=== PATIENT | male | born 1950 | race Caucasian/White ===

== ENCOUNTER 2018-10-24 10:18 | Inpatient (IN) | payer MEDICARE ==
[2018-10-24 11:13] LABS: Albumin 3.8 g/dL (3.5-5.0); Calcium 9.2 mg/dL (8.4-10.2); Magnesium 1.8 mg/dL (1.6-2.3); Potassium 5.1 mmol/L (3.5-5.1); Total Bilirubin 0.9 mg/dL (0.2-1.3); Total Protein 6.8 g/dL (6.3-8.2)
[2018-10-24 11:18] LABS: Anisocytosis Slight; Basophils # (A) 0.1 k/uL (0-0.2); Basophils % (A) 1 %; Eosinophils # (A) 0.2 k/uL (0-0.7); Eosinophils % (A) 2 %; HCT 43.8 % (39.0-53.0); HGB 14.8 gm/dL (13.0-17.5); Lymphocytes # (A) 2.6 k/uL (1.0-4.8); Lymphocytes % (A) 20 %; MCHC 33.8 g/dL (31.0-37.0); MCV 88.9 fL (80.0-100.0); Monocytes # (A) 0.8 k/uL (0-1.0); Monocytes % (A) 6 %; Neutrophils # (A) 9.3 k/uL (1.3-7.7); Neutrophils % (A) 71 %; Platelet Count 179 k/uL (150-450); RBC 4.93 m/uL (4.30-5.90); RDW 17.7 % (11.5-15.5); WBC 13.2 k/uL (3.8-10.6)
[2018-10-24 11:23] LABS: Partial Thromboplastin Time 26.5 sec (22.0-30.0); Prothrombin Time 10.5 sec (9.0-12.0)
--- NOTE | 2018-10-24 11:28 | XR ---
EXAMINATION TYPE: XR chest 2V DATE OF EXAM: 10/24/2018 COMPARISON: Prior chest x-ray 04/13/2012 HISTORY: Chest pain TECHNIQUE: Frontal and lateral views of the chest are obtained. FINDINGS: There is no pneumothorax seen. The cardiac silhouette size is within normal limits. Apica l pleural thickening noted on the right. There are overlying cardiac leads. There is blunting of the left costophrenic angle, suspect a prominent epicardial fat pad. Pleural thickening is noted along th e lateral chest wall similar to prior exam. The osseous structures are intact. IMPRESSION: Difficult to exclude a lingular pneumonia, correlate. Follow-up suggested.
--- NOTE | 2018-10-24 13:05 | ED ---
Recheck HPI - General Chief Complaint: Recheck/Abnormal Lab/Rx Stated Complaint: chest pain, abn labs Time Seen by Provider: 10/24/18 10:32 Source: patient, RN notes reviewed Mode of arrival: wheelchair Limitations: no limitations - History of Present Illness Initial Comments: This is a 68-year-old male who is been a smoker since age 11 smokes about 3 p acks a day who is having intermittent episodes of chest pain this past week he was seen in his doctor's office lab work had been drawn he had a normal- appearing EKG labs however which were found this morning demonstrate elevated troponin of 4.1. Upon arrival here the patient states he is having no chest pain at this time he states he was having more chest pain last week over the weekend he has several episodes but now denies any pain no new shortness of breath though he does admit that he likely has COPD and emphysema. He denies fevers chills nausea vomiting sweats or other symptoms MD Complaint: abnormal lab - Related Data Home Medications Medication Instructions Recorded Confirmed Aspirin EC [Ecotrin] 325 mg PO BID 10/24/18 10/24/18 Atenolol [Tenormin] 50 mg PO HS 10/24/18 10/24/18 Atenolol [Tenormin] 100 mg PO DAILY 10/24/18 10/24/18 Cyclobenzaprine [Flexeril] 10 mg PO TID 10/24/18 10/24/18 HYDROcodone/APAP 5-325MG [[place] 1 tab PO Q6H PRN 10/24/18 10/24/18 5-325] Isosorbide Mononitrate ER [Imdur] 60 mg PO DAILY 10/24/18 10/24/18 Lisinopril [Zestril] 20 mg PO DAILY 10/24/18 10/24/18 Niacin 500 mg PO BID 10/24/18 10/24/18 Omeprazole [PriLOSEC] 20 mg PO DAILY 10/24/18 10/24/18 Simvastatin 40 mg PO HS 10/24/18 10/24/18 Umeclidinium Brm/Vilanterol Tr 1 puff INHALATION RT-DAILY 10/24/18 10/24/18 [Anoro Ellipta 62.5-25 Mcg INH] metFORMIN HCL [Glucophage] 500 mg PO AC-BID 10/24/18 10/24/18 Allergies Allergy/AdvReac Type Severity Reaction Status Date / Time codeine AdvReac PASSES OUT Verified 10/24/18 11:19 Review of Systems ROS Statement: Those systems with pertinent positive or pertinent negative responses have been documented in the HPI. ROS Other: All systems not noted in ROS Statement are negative. Past Medical History Past Medical History: Coronary Artery Disease (CAD), Chest Pain / Angina, COPD, Diabetes Mellitus History of Any Multi-Drug Resistant Organisms: None Reported Past Surgical History: Back Surgery, Heart Catheterization With Stent, Orthopedic Surgery Additional Past Surgical History / Comment(s): leg ankle Past Psychological History: No Psychological Hx Reported Smoking Status: Current every day smoker Past Alcohol Use History: None Reported Past Drug Use History: None Reported General Exam - General Exam Comments Initial Comments: This a well-developed well-nourished awake alert oriented 3 male Limitations: no limitations General appearance: alert, in no apparent distress Head exam: Present: atraumatic, normocephalic, normal inspection Eye exam: Present: normal appearance, PERRL, EOMI. Absent: scleral icterus, conjunctival injection, periorbital swelling ENT exam: Present: normal exam, mucous membranes moist Neck exam: Present: normal inspection. Absent: tenderness, meningismus, lymphadenopathy Respiratory exam: Present: normal lung sounds bilaterally. Absent: respiratory distress, wheezes, rales, rhonchi, stridor Cardiovascular Exam: Present: regular rate, normal rhythm, normal heart sounds. Absent: systolic murmur, diastolic murmur, rubs, gallop, clicks GI/Abdominal exam: Present: soft, normal bowel sounds. Absent: distended, tenderness, guarding, rebound, rigid Extremities exam: Present: normal inspection, full ROM, normal capillary refill. Absent: tenderness, pedal edema, joint swelling, calf tenderness Back exam: Present: normal inspection Neurological exam: Present: alert, oriented X3, CN II-XII intact Psychiatric exam: Present: normal affect, normal mood Skin exam: Present: warm, dry, intact, normal color. Absent: rash Course Vital Signs 10/24/18 10:25 Temperature 98.4 F Pulse Rate 65 Respiratory 20 Rate Blood Pressure 107/57 O2 Sat by Pulse 97 Oximetry - Reevaluation(s) Reevaluation #1: 10/24/18 13:06 Patient demonstrates no further chest pain. I did discuss the case both with Dr. Beard and with Dr. Rivera who did come the emergency department to see the patient Medical Decision Making - Medical Decision Making Dr. isaac I did come the emergency department and will take the patient the [facility]. - Lab Data Result diagrams: 10/24/18 10:40 10/24/18 10:40 Lab Results 10/24/18 10/24/18 10/24/18 Range/Units 10:40 10:40 10:40 WBC 13.2 H (3.8-10.6) k/uL RBC 4.93 (4.30-5.90) m/uL Hgb 14.8 (13.0-17.5) gm/dL Hct 43.8 (39.0-53.0) % MCV 88.9 (80.0-100.0) fL MCH 30.0 (25.0-35.0) pg MCHC 33.8 (31.0-37.0) g/dL RDW 17.7 H (11.5-15.5) % Plt Count 179 (150-450) k/uL Neutrophils % 71 % Lymphocytes % 20 % Monocytes % 6 % Eosinophils % 2 % Basophils % 1 % Neutrophils # 9.3 H (1.3-7.7) k/uL Lymphocytes # 2.6 (1.0-4.8) k/uL Monocytes # 0.8 (0-1.0) k/uL Eosinophils # 0.2 (0-0.7) k/uL Basophils # 0.1 (0-0.2) k/uL Anisocytosis Slight PT 10.5 (9.0-12.0) sec INR 1.0 (<1.2) APTT 26.5 (22.0-30.0) sec Sodium 134 L (137-145) mmol/L Potassium 5.1 (3.5-5.1) mmol/L Chloride 101 (98-107) mmol/L Carbon Dioxide 24 (22-30) mmol/L Anion Gap 9 mmol/L BUN 16 (9-20) mg/dL Creatinine 1.08 (0.66-1.25) mg/dL Est GFR (CKD-EPI)AfAm 81 (>60 ml/min/1.73 sqM) Est GFR (CKD-EPI)NonAf 70 (>60 ml/min/1.73 sqM) Glucose 204 H (74-99) mg/dL Calcium 9.2 (8.4-10.2) mg/dL Magnesium 1.8 (1.6-2.3) mg/dL Total Bilirubin 0.9 (0.2-1.3) mg/dL AST 48 (17-59) U/L ALT 31 (21-72) U/L Alkaline Phosphatase 86 (38-126) U/L Creatine Kinase 171 H (55-170) U/L Troponin I (0.000-0.034) ng/mL Total Protein 6.8 (6.3-8.2) g/dL Albumin 3.8 (3.5-5.0) g/dL 10/24/18 Range/Units 10:40 WBC (3.8-10.6) k/uL RBC (4.30-5.90) m/uL Hgb (13.0-17.5) gm/dL Hct (39.0-53.0) % MCV (80.0-100.0) fL MCH (25.0-35.0) pg MCHC (31.0-37.0) g/dL RDW (11.5-15.5) % Plt Count (150-450) k/uL Neutrophils % % Lymphocytes % % Monocytes % % Eosinophils % % Basophils % % Neutrophils # (1.3-7.7) k/uL Lymphocytes # (1.0-4.8) k/uL Monocytes # (0-1.0) k/uL Eosinophils # (0-0.7) k/uL Basophils # (0-0.2) k/uL Anisocytosis PT (9.0-12.0) sec INR (<1.2) APTT (22.0-30.0) sec Sodium (137-145) mmol/L Potassium (3.5-5.1) mmol/L Chloride (98-107) mmol/L Carbon Dioxide (22-30) mmol/L Anion Gap mmol/L BUN (9-20) mg/dL Creatinine (0.66-1.25) mg/dL Est GFR (CKD-EPI)AfAm (>60 ml/min/1.73 sqM) Est GFR (CKD-EPI)NonAf (>60 ml/min/1.73 sqM) Glucose (74-99) mg/dL Calcium (8.4-10.2) mg/dL Magnesium (1.6-2.3) mg/dL Total Bilirubin (0.2-1.3) mg/dL AST (17-59) U/L ALT (21-72) U/L Alkaline Phosphatase (38-126) U/L Creatine Kinase (55-170) U/L Troponin I 3.680 H* (0.000-0.034) ng/mL Total Protein (6.3-8.2) g/dL Albumin (3.5-5.0) g/dL - EKG Data -: EKG Interpreted by In EKG shows normal: sinus rhythm (#760. Interval 150 QRS duration 80 QT since QTC 386/[address]-T wave changes.) - Radiology Data Radiology results: report reviewed, image reviewed Critical Care Time Critical Care Time: Yes Critical Care Time: 31 minutes of critical care time which includes initial presentation with history physical labs x-rays multiple reevaluation the patient discussed with the admitting physician discussed with Dr. Rivera discussion with the [facility] personnel some admission orders and documentation of the above Disposition Clinical Impression: Non-STEMI (non-ST elevated myocardial infarction), COPD (chronic obstructive pulmonary disease), Smoker Disposition: ADMITTED IP TO THIS HOSP Condition: Critical Referrals: Good Beard MD [Primary Care Provider] - 1-2 days
[2018-10-24] MEDS ORDERED: ATORVASTATIN 80 MG TAB PO STA (13:08)
[2018-10-24] MEDS ORDERED: ALPRAZolam 0.25 MG TAB PO PRN (13:08)
[2018-10-24] MEDS ORDERED: ALPRAZolam 0.5 MG TAB PO PRN (13:08)
[2018-10-24] MEDS ORDERED: ASPIRIN 325 MG TAB PO STA (13:08)
[2018-10-24] MEDS ORDERED: NITROGLYCERIN SL TABS 0.4 MG TAB SUBLINGUAL PRN ×3 (13:08→14:35)
[2018-10-24] MEDS ORDERED: ASPIRIN 325 MG TAB ONE (13:13)
[2018-10-24] MEDS ORDERED: LIDOCAINE 1% INJ 10MG/ML (20 ML MDV) ONE (13:21)
[2018-10-24] MEDS ORDERED: VERAPAMIL 2.5 MG/ML 2 ML AMP ONE (13:21)
[2018-10-24] MEDS ORDERED: fentaNYL (PF) 50 MCG/ML 2 ML AMP ONE (13:22)
[2018-10-24] MEDS ORDERED: ASPIRIN 325 MG TAB PO ONE (13:29)
[2018-10-24] MEDS ORDERED: fentaNYL (PF) 50 MCG/ML 2 ML AMP IV ONE (13:29)
[2018-10-24] MEDS ORDERED: SODIUM CHLORIDE 0.9% 1,000 ML IV ONE (13:31)
[2018-10-24] MEDS ORDERED: MIDAZOLAM PF (FBP) 2 MG/2 ML VIAL IV ONE (13:34)
[2018-10-24] MEDS ORDERED: LIDOCAINE 1% INJ 10MG/ML (20 ML MDV) SQ ONE (13:35)
[2018-10-24] MEDS ORDERED: VERAPAMIL SYRINGE (5 MG/10 ML) INTRAARTER ONE (13:37)
[2018-10-24] MEDS ORDERED: BIVALIRUDIN BOLUS 250 MG/50 ML IV ONE (13:45)
[2018-10-24] MEDS ORDERED: BIVALIRUDIN 250 MG in SODIUM CHLORIDE 0.9% 34 ML IV ONE (13:45)
[2018-10-24] MEDS ORDERED: PRASUGREL 10 MG TAB ONE (13:45)
[2018-10-24] MEDS ORDERED: PRASUGREL 10 MG TAB PO ONE (13:48)
[2018-10-24] MEDS ORDERED: IOPAMIDOL-370 100ML BTL INJ ONE ×2 (13:51→14:10)
[2018-10-24] MEDS: NITROGLYCERIN 1000MCG/10ML SYRINGE INTRACORON ONE ×2 (13:58→14:09)
[2018-10-24] MEDS ORDERED: ATROPINE SULFATE 0.1 MG/ML 10ML SYRINGE IV PRN (14:35)
[2018-10-24] MEDS ORDERED: ZOLPIDEM 5 MG TAB PO PRN (14:35)
[2018-10-24] MEDS ORDERED: RX INFO: IV CONTRAST WAS GIVEN 1 EACH MISC MISCELLANE PRN (14:35)
[2018-10-24] MEDS ORDERED: MAG HYDROX/AL HYDROX/SIMETH 30 ML CUP PO PRN (14:35)
[2018-10-24] MEDS ORDERED: SODIUM CHLORIDE 0.9% 1,000 ML IV SCH (14:45)
[2018-10-24] MEDS: NICOTINE 21MG/24HR PATCH TRANSDERM SCH (15:22)
[2018-10-24] MEDS: CYCLOBENZAPRINE 10 MG TAB PO SCH ×2 (15:24→21:01)
--- NOTE | 2018-10-24 17:11 | CONS ---
CONSULTATION Mr. Lugo is a 68-year-old male with a known history of hypertension, hyperlipidemia, diabetes mellitus, history of coronary artery disease, status post stenting of the RCA with 2 stents in [place] 15 years ago, at which time he was told that he had mild disease in the other arteries. He has done reasonably well. For the last week he has been complaining of chest discomfort. On Wednesday he was seen by Dr. Beard and lab data were obtained that revealed a troponin of 4. He was called in today to come into the emergency room. He had some pain yesterday at rest. Last week the discomfort was exertional, associated with dyspnea. He has dyspnea on exertion. He smokes about 3 packs a day. He has history of hypertension, hyperlipidemia, diabetes. He denies any peripheral edema. No PND. No orthopnea. He denies any arrhythmia or syncope. MEDICATIONS: His medications at home include: 1. Metformin 500 mg twice a day. 2. Ellipta. 3. Simvastatin 40 mg daily. 4. Prilosec. 5. Niacin. 6. Zestril 20 mg daily. 7. Isosorbide mononitrate 60 mg daily. 8. Flexeril 10 mg 3 times a day. 9. Tenormin 150 mg daily. 10.Aspirin once a day. REVIEW OF SYSTEMS: RESPIRATORY SYSTEM: He had dyspnea on exertion, history of chronic obstructive lung disease and chronic tobacco use. GI SYSTEM: No recent GI bleeding. No peptic ulcer disease. SYSTEM: No dysuria or hematuria. NERVOUS SYSTEM: No history of stroke or seizure. PHYSICAL EXAMINATION: He is a 68-year-old male, alert, oriented, in no apparent distress. Obese. Blood pressure 107/57 with a heart rate in the 60s. HEAD: Normocephalic. EYES: Sclerae anicteric. NECK: Good carotid upstroke. No bruit. LUNGS: Decreased air exchange. No wheezes. HEART: Regular rate, rhythm. S1, S2. No S3. Systolic murmur at the base. No diastolic murmur. No rub. ABDOMEN: Soft, obese, nontender. Positive bowel sounds. No organomegaly. EXTREMITIES: No edema. Intact distal pulses. LAB DATA: Troponin 3.68, blood sugar of 204, potassium 5.1. BUN and creatinine of 16 and 1.08. Hemoglobin 14.8, white blood cells 13.2. EKG revealed a sinus mechanism, normal axis and intervals with no acute ST-segment changes. Chest x-ray raised the question of lingular pneumonia. IMPRESSION: 1. Lph-FI-mwnndwo-elevation myocardial infarction. Patient had chest discomfort throughout last week. His troponin on Wednesday, according to the emergency room staff, was 4, although it is unclear if it was on the rise or coming down. The patient had recurrent pain yesterday at rest. 2. History of coronary artery disease, status post stenting done 15 years ago in [place]. 3. History of hypertension. 4. Hyperlipidemia. 5. Diabetes mellitus. 6. Chronic tobacco use with chronic obstructive lung disease. RECOMMENDATIONS: In view of his presentation and risk, I have recommended proceeding with coronary angiography to assess his status and guide his treatment. The rationale behind the procedure was discussed with the patient, who is in full understanding and agreement. Thank you for this consult. Will follow with you. MMCORNELL / IJN: [id number] /
--- NOTE | 2018-10-24 18:42 | CC ---
CARDIAC CATHETERIZATION REPORT Mr. Lugo is a 68-year-old male with known history of coronary artery disease, status post stenting to the right coronary artery done in [place] 15 years ago, history of hypertension, hyperlipidemia, diabetes and chronic tobacco use. He presented to the emergency room after complaining of chest discomfort for the last week, exertional pattern. He had lab data drawn by Dr. Beard on Wednesday and his troponin came back elevated at 4. He was directed to come to the emergency room today. He had some chest discomfort last night at rest. In view of that and in view of his presentation, recommendations were made regarding cardiac catheterization. The procedure, its risks and complication were discussed with the patient, who was in full understanding and agreement. PROCEDURE: Patient was brought to the clinical laboratory assistant in a fasting, semi-sedated state after receiving fentanyl and Benadryl and achieving a moderate conscious sedated state. Using Xylocaine anesthesia and Seldinger technique, a 6-Cuban sheath was introduced in the right radial artery. Selective right and left coronary angiography was performed using 5-Cuban 3-1/2 bend right and left Makenzie catheters. Multiple views were taken of the arteries, including hemiaxial views. Following that, angioplasty and stenting were performed. Following that, 5-Cuban tight pigtail catheter was introduced into the left ventricle and pressures were calculated. Following that, catheter and sheath were removed. Hemostasis was obtained with deployment of a TR band. There was no immediate complication. Patient was returned to his room in stable condition. Of note, the patient received Angiomax during the intervention as well as oral loading dose of Effient and intra-arterial verapamil. FINDINGS: FLUOROSCOPY: There was calcification involving the coronary arteries. LEFT MAIN: This is a large-sized vessel bifurcating into left circumflex and left anterior descending artery. Left main coronary artery has no evidence of high-grade stenosis. LEFT ANTERIOR DESCENDING ARTERY: This is a large-sized vessel reaching toward the apex with a wrap around the apex segment giving rise to 3 diagonal branches of small to moderate caliber. The left anterior descending artery after the takeoff of the first septal mutuel cashier has a 60% to 70% plaque. The rest of the vessel has no high-grade stenosis. LEFT CIRCUMFLEX: This is a nondominant vessel giving rise to 2 obtuse marginal branches. The left circumflex has mild to moderate disease of 40% without any evidence of high-grade stenosis. RIGHT CORONARY ARTERY: This is a large dominant vessel bifurcating distally into PDA and posterolateral segment and branches. The mid segment is stented. There is subtotal occlusion in the mid right coronary artery with slow antegrade flow in the PDA and PLV. There is also a plaque of 60%, proximal right coronary artery. LEFT VENTRICULOGRAM: Left ventriculogram was not performed. HEMODYNAMICS: There was no gradient across the aortic valve. The left ventricular end-diastolic pressure was 24-26 mmHg. CONCLUSION: 1. Subtotally occluded right coronary artery in the mid segment with slow flow distally. 2. Moderate to significant disease in the mid LAD. 3. Mild disease in the left circumflex. RECOMMENDATIONS: In view of findings and anatomy, I have recommended proceeding with angioplasty and stenting of the right coronary artery. The procedure, its risks and complications were discussed with the patient, who is in full understanding and agreement. MMBROOKLYN / BILLYN: [id number] /
--- NOTE | 2018-10-24 18:54 | PTCA ---
PERCUTANEOUSTRANS CORORONARY ANGIOGRAPHY Mr. Lugo is a 68-year-old male with a known history of coronary artery disease, status post stenting of the right coronary artery 15 years ago, who presented with non- STEMI. He underwent cardiac catheterization was found to have a totally occluded mid right coronary artery. In view of that, recommendation was made regarding angioplasty and stenting. The procedure, its risks and complications were discussed with the patient, who was in full understanding and agreement. PROCEDURE: A 6-Telugu FR4 guiding catheter was introduced in the system. After cannulating the right coronary ostium, a 0.014 balanced medium-weight J-wire was advanced across the lesion and positioned distally. Then a 2.5 x 12 mm Trek balloon was advanced and one inflation at 10 atmospheres was done. Following that the balloon was removed and a 2.75 x 23 mm Xience Leonarda stent was deployed and post dilated at 16 atmospheres. Following that, the balloon was removed and a 3.0 x 38 mm Xience Leonarda stent was deployed proximal to the first one and post dilated to 16 atmospheres; and using the same balloon and inflation overlap segment, 18 atmospheres was done. Following that, the balloon was removed and a 3.25 mm x 15 mm NC Trek balloon was advanced and multiple inflations at maximum 14 atmospheres were done. After the last inflation, after appropriate wait, the balloon and the guidewire were withdrawn back into the guiding catheter. Images were obtained and repeated. Those images revealed stable successful stenting. At that point, the guiding catheter, the balloon and the guidewire were removed. Left ventricular end-diastolic pressure was calculated. Following that, catheter and sheath were removed. Hemostasis was obtained with deployment of a TR band. There was no immediate complication. Patient was returned to his room in stable condition. Of note, the patient had chest discomfort and EKG changes with the inflations. He received Angiomax per protocol as well as oral loading dose of Effient. RESULTS: Successful stenting of a long segment of the right coronary artery with reduction of stenosis in mid segment from 99% to 0%. RECOMMENDATIONS: Patient will be continued on aspirin, Effient, beta blockers, ANATOLY inhibitor and statin. The importance of dual antiplatelet treatment was discussed with the patient as well as the importance of smoking cessation. Those findings and recommendation were discussed with him, and he is in full understanding and agreement. Duration of procedure was 47 minutes. MMODL / IJN: [id number] /
[2018-10-24 20:16] LABS: Glucose,Whole Blood 202 mg/dL (75-99)
[2018-10-25 06:34] LABS: Glucose,Whole Blood 143 mg/dL (75-99)
[2018-10-25] MEDS: PANTOPRAZOLE 40 MG TABLET PO SCH (06:44)
[2018-10-25 06:50] LABS: Calcium 8.8 mg/dL (8.4-10.2); Potassium 4.6 mmol/L (3.5-5.1)
[2018-10-25] MEDS: ATENOLOL 50 MG TAB PO SCH (08:15)
[2018-10-25] MEDS: ASPIRIN 81 MG PO SCH (08:15)
[2018-10-25] MEDS: PRASUGREL 10 MG TAB PO SCH (08:15)
[2018-10-25] MEDS: NICOTINE 21MG/24HR PATCH TRANSDERM SCH (08:15)
[2018-10-25] MEDS: LISINOPRIL 20 MG TAB PO SCH (08:15)
[2018-10-25] MEDS: CYCLOBENZAPRINE 10 MG TAB PO SCH ×3 (08:15→19:49)
--- NOTE | 2018-10-25 08:38 | P.HPIM ---
History of Present Illness H&P Date: 10/25/18 Chief Complaint: The patient is here essentially for abnormal troponin This is a history of physical on [age]-year-old white male with history of tobacco use and previous coronary stent placement about 15 years ago in [place]. The patient came in after a week long history of intermittent substernal chest pressure. The patient saw me in the office about 4 days ago and had EKG done which was normal. Troponin and CK-MB were elevated and the patient was sent for appropriate hospitalization. Coronary stent was placed and he is now seen postoperatively. The patient states minimal chest pressure now. No significant nausea, vomiting or diarrhea Review of Systems Constitutional: Denies chills, Denies fever Eyes: denies blurred vision, denies pain Ears, nose, mouth and throat: Denies headache, Denies sore throat Cardiovascular: Reports chest pain Respiratory: Denies cough Gastrointestinal: Denies abdominal pain, Denies diarrhea, Denies nausea, Denies vomiting Musculoskeletal: Denies myalgias Integumentary: Denies pruritus, Denies rash Neurological: Denies numbness, Denies weakness Past Medical History Past Medical History: Coronary Artery Disease (CAD), Chest Pain / Angina, COPD, Diabetes Mellitus History of Any Multi-Drug Resistant Organisms: None Reported Past Surgical History: Back Surgery, Heart Catheterization With Stent, Ortho pedic Surgery Additional Past Surgical History / Comment(s): leg ankle Date of Last Stent Placement:: 10/24/18 Past Psychological History: No Psychological Hx Reported Smoking Status: Current every day smoker Past Alcohol Use History: None Reported Past Drug Use History: None Reported Medications and Allergies Home Medications Medication Instructions Recorded Confirmed Type Aspirin EC [Ecotrin] 325 mg PO BID 10/24/18 10/24/18 History Atenolol [Tenormin] 50 mg PO HS 10/24/18 10/24/18 History Atenolol [Tenormin] 100 mg PO DAILY 10/24/18 10/24/18 History Cyclobenzaprine [Flexeril] 10 mg PO TID 10/24/18 10/24/18 History HYDROcodone/APAP 5-325MG [[place] 1 tab PO Q6H PRN 10/24/18 10/24/18 History 5-325] Isosorbide Mononitrate ER [Imdur] 60 mg PO DAILY 10/24/18 10/24/18 History Lisinopril [Zestril] 20 mg PO DAILY 10/24/18 10/24/18 History Niacin 500 mg PO BID 10/24/18 10/24/18 History Omeprazole [PriLOSEC] 20 mg PO DAILY 10/24/18 10/24/18 History Simvastatin 40 mg PO HS 10/24/18 10/24/18 History Umeclidinium Brm/Vilanterol Tr 1 puff INHALATION RT-DAILY 10/24/18 10/24/18 History [Anoro Ellipta 62.5-25 Mcg INH] metFORMIN HCL [Glucophage] 500 mg PO AC-BID 10/24/18 10/24/18 History Allergies Allergy/AdvReac Type Severity Reaction Status Date / Time codeine AdvReac PASSES OUT Verified 10/24/18 11:19 Physical Exam Vitals: Vital Signs Temp Pulse Pulse Pulse Resp BP BP 10/25/18 08:00 98 F 70 16 106/54 10/25/18 04:00 98.4 F 74 16 117/74 10/25/18 00:00 72 16 10/24/18 23:58 98.2 F 72 16 126/71 10/24/18 20:00 98.4 F 71 71 18 118/68 10/24/18 18:20 63 102/62 10/24/18 17:20 69 102/61 10/24/18 16:25 65 102/57 10/24/18 15:55 85 106/58 10/24/18 15:25 70 114/63 10/24/18 15:10 63 107/66 10/24/18 14:55 65 20 113/65 10/24/18 14:40 97.9 F 70 20 131/70 10/24/18 13:00 58 L 18 108/59 10/24/18 12:00 59 L 16 95/51 10/24/18 11:00 119/68 10/24/18 10:25 98.4 F 65 20 107/57 Pulse Ox 10/25/18 08:00 95 10/25/18 04:00 96 10/25/18 00:00 10/24/18 23:58 96 10/24/18 20:00 96 10/24/18 18:20 96 10/24/18 17:20 95 10/24/18 16:25 96 10/24/18 15:55 95 10/24/18 15:25 95 10/24/18 15:10 95 10/24/18 14:55 93 L 10/24/18 14:40 96 10/24/18 13:00 97 10/24/18 12:00 93 L 10/24/18 11:00 95 10/24/18 10:25 97 Intake and Output 10/24/18 10/25/18 10/25/18 22:59 06:59 14:59 Intake Total 1420 Balance 1420 Intake: Intake, IV Titration 1000 Amount Sodium Chloride 0.9% 1, 1000 000 ml @ 100 mls/hr IV . Q10H MARY KATE Rx#:[id number] Oral 420 Other: # Voids 1 1 Weight 98.2 kg - Constitutional General appearance: obese - EENT Eyes: EOMI - Neck Neck: no lymphadenopathy - Respiratory Respiratory: bilateral: CTA - Cardiovascular Rhythm: regular Heart sounds: normal: S1, S2 Abnormal Heart Sounds: no S3 Gallop - Gastrointestinal General gastrointestinal: soft, no tenderness - Integumentary Integumentary: no cellulitis - Neurologic Neurologic: CNII-XII intact, focal deficits Results CBC & Chem 7: 10/24/18 10:40 10/25/18 06:06 Labs: Abnormal Lab Results - Last 24 Hours (Table) 10/24/18 10/24/18 10/24/18 Range/Units 10:40 10:40 10:40 WBC 13.2 H (3.8-10.6) k/uL RDW 17.7 H (11.5-15.5) % Neutrophils # 9.3 H (1.3-7.7) k/uL Sodium 134 L (137-145) mmol/L Glucose 204 H (74-99) mg/dL POC Glucose (mg/dL) (75-99) mg/dL Creatine Kinase 171 H (55-170) U/L Troponin I 3.680 H* (0.000-0.034) ng/mL Triglycerides (<150) mg/dL HDL Cholesterol (40-60) mg/dL 10/24/18 10/24/18 10/24/18 Range/Units 16:53 20:15 22:27 WBC (3.8-10.6) k/uL RDW (11.5-15.5) % Neutrophils # (1.3-7.7) k/uL Sodium (137-145) mmol/L Glucose (74-99) mg/dL POC Glucose (mg/dL) 202 H (75-99) mg/dL Creatine Kinase (55-170) U/L Troponin I 7.540 H* 11.000 H* (0.000-0.034) ng/mL Triglycerides (<150) mg/dL HDL Cholesterol (40-60) mg/dL 10/25/18 10/25/18 Range/Units 06:06 06:31 WBC (3.8-10.6) k/uL RDW (11.5-15.5) % Neutrophils # (1.3-7.7) k/uL Sodium 134 L (137-145) mmol/L Glucose 140 H (74-99) mg/dL POC Glucose (mg/dL) 143 H (75-99) mg/dL Creatine Kinase (55-170) U/L Troponin I (0.000-0.034) ng/mL Triglycerides 231 H (<150) mg/dL HDL Cholesterol 22 L (40-60) mg/dL Thrombosis Risk Factor Assmnt - Choose All That Apply Each Factor Represents 1 point: Abnormal pulmonary function (COPD) Each Risk Factor Represents 2 Points: Age 61-74 years Thrombosis Risk Factor Assessment Total Risk Factor Score: 3 Thrombosis Risk Factor Assessment Level: Moderate Risk Assessment and Plan (1) Stented coronary artery Current Visit: Yes Status: Acute Code(s): Z95.5 - PRESENCE OF CORONARY ANGIOPLASTY IMPLANT AND GRAFT SNOMED Code(s): 636861280 (2) COPD (chronic obstructive pulmonary disease) Current Visit: Yes Status: Acute Code(s): J44.9 - CHRONIC OBSTRUCTIVE PULMONARY DISEASE, UNSPECIFIED SNOMED Code(s): 38520623 (3) Non-STEMI (non-ST elevated myocardial infarction) Current Visit: Yes Status: Acute Code(s): I21.4 - NON-ST ELEVATION (NSTEMI) MYOCARDIAL INFARCTION SNOMED Code(s): 75534496 Plan: Continue appropriate postoperative follow-up from multiple stent placement. Echocardiogram is being done today. Reconcile home medications as necessary. Anticipate discharge in next 24 hours. See orders otherwise. The patient is otherwise a full code. Time with Patient: Greater than 30
[2018-10-25] MEDS ORDERED: ASPIRIN 325 MG TAB PO SCH (09:00)
--- NOTE | 2018-10-25 09:02 | PN ---
PROGRESS NOTE Mr. Lugo is a 68-year-old male who has a history of coronary artery disease, history of chronic tobacco use, hypertension, hyperlipidemia, and diabetes who presented with non STEMI, underwent cardiac catheterization, was found to have a subtotally occluded right coronary artery, underwent stenting of that vessel. He is doing well this morning, denying any symptoms of chest pain. His breathing has been stable. He denies any dizziness or palpitation. He continues to be on aspirin once a day, atenolol 100 mg daily, Lipitor 80 mg daily, lisinopril 20 mg daily and Effient 10 mg daily. PHYSICAL EXAMINATION: Blood pressure 106/50 with the heart rate in 70s. LUNGS: Clear. HEART: Regular rate and rhythm. S1, S2. No S3. No rub with a systolic murmur, ejection type 2/6 heard at the base, no diastolic murmur. ABDOMEN: Soft, nontender. EXTREMITIES: No edema. Right radial pulse intact. LAB DATA: Lab data revealed troponin of 11, BUN creatinine of 18 and 1.03, sodium 134. IMPRESSION: 1. Status post stenting of the right coronary artery in a setting of [id number] myocardial infarction. 2. Moderate significant disease in the mid LAD. 3. Hypertension. 4. Hyperlipidemia. 5. Diabetes mellitus. RECOMMENDATION: From the cardiac standpoint, I will continue present therapy. We will review the results of his echocardiogram. Increase his level of activity and I will review his images to see if the LAD requires intervention. Depending on his progress, further recommendation will be made. MMODL / IJN: [id number] /
--- NOTE | 2018-10-25 11:01 | ECHOF ---
Referral Reason:pr MEASUREMENTS -------- HEIGHT: 170.2 cm WEIGHT: 98.0 kg BP: 117/74 RVIDd: 2.7 cm (< 3.3) IVSd: 1.5 cm (0.6 - 1.1) LVIDd: 4.7 cm (3.9 - 5.3) LVPWd: 1.0 cm (0.6 - 1.1) IVSs: 1.6 cm LVIDs: 3.2 cm LVPWs: 1.4 cm LA Diam: 3.2 cm (2.7 - 3.8) Ao Diam: 2.9 cm (2.0 - 3.7) AV Cusp: 0.9 cm (1.5 - 2.6) LA Diam: 4.1 cm (2.7 - 3.8) MV EXCURSION: 19.913 mm (> 18.000) MV EF SLOPE: 105 mm/s (70 - 150) EPSS: 0.4 cm MV E Rick: 0.64 m/s MV DecT: 171 ms MV A Rick: 0.59 m/s MV E/A Ratio: 1.08 AV maxP.03 mmHg AV meanP.54 mmHg RAP: 5.00 mmHg RVSP: 20.00 mmHg FINDINGS -------- Sinus rhythm. This was a techncally difficult study with suboptimal views, , Lumason utilized for enhancement of im ages. The left ventricular size is normal. There is borderline concentric left ventricular hypertrophy. Overall left ventricular systolic function is mildly impaired with, an EF between 45 - 50 %. Infer ior Hypokinesis The right ventricle is normal in size. The left atrial size is normal. The right atrial size is normal. 5.0mg OF Lumason UTLIZED: 2 OR MORE WALL SEGMENTS NOT VISUALIZED. The aortic valve was not well visualized. There is moderate aortic stenosis present. Peak/mean gr adient across the Aortic Valve is 29.03mmHg / 17.54mmHg. Mild mitral regurgitation is present. Mild tricuspid regurgitation present. There is no evidence of pulmonary hypertension. The right v entricular systolic pressure, as measured by Doppler, is 20.00mmHg. The pulmonic valve was not well visualized. The aortic root size is normal. Echo free space represents a pericardial fat pad. CONCLUSIONS -------- 1. Sinus rhythm. 2. This was a techncally difficult study with suboptimal views, , Lumason utilized for enhancement of images. 3. The left ventricular size is normal. 4. There is borderline concentric left ventricular hypertrophy. 5. Overall left ventricular systolic function is mildly impaired with, an EF between 45 - 50 %. 6. Inferior Hypokinesis 7. The right ventricle is normal in size. 8. The left atrial size is normal. 9. The right atrial size is normal. 10. 5.0mg OF Lumason UTLIZED: 2 OR MORE WALL SEGMENTS NOT VISUALIZED. 11. The aortic valve was not well visualized. 12. There is moderate aortic stenosis present. 13. Peak/mean gradient across the Aortic Valve is 29.03mmHg / 17.54mmHg. 14. Mild mitral regurgitation is present. 15. Mild tricuspid regurgitation present. 16. There is no evidence of pulmonary hypertension. 17. The right ventricular systolic pressure, as measured by Doppler, is 20.00mmHg. 18. The pulmonic valve was not well visualized. 19. The aortic root size is normal. 20. Echo free space represents a pericardial fat pad. METER SETTER: Jina Quiles RDCS
[2018-10-25 12:38] LABS: Glucose,Whole Blood 151 mg/dL (75-99)
[2018-10-25 14:14] VITALS: BMI 33.9
[2018-10-25 17:21] LABS: Glucose,Whole Blood 223 mg/dL (75-99)
[2018-10-25 20:55] LABS: Glucose,Whole Blood 149 mg/dL (75-99)
[2018-10-25] MEDS ORDERED: ATORVASTATIN 80 MG TAB PO SCH (21:00)
[2018-10-26 03:51] VITALS: RESP 18
[2018-10-26 06:15] LABS: Glucose,Whole Blood 159 mg/dL (75-99)
[2018-10-26] MEDS: PANTOPRAZOLE 40 MG TABLET PO SCH (06:35)
[2018-10-26 06:44] LABS: Calcium 8.9 mg/dL (8.4-10.2); Potassium 4.6 mmol/L (3.5-5.1)
[2018-10-26] MEDS ORDERED: INSULIN ASPART (NovoLOG) 100 UNIT/ML VIAL SQ SCH (07:30)
--- NOTE | 2018-10-26 08:31 | P.DS ---
Providers Date of admission: 10/24/18 13:08 Attending physician: Good Beard Consults: 10/24/18 13:01 Consult Physician Stat Consulting Provider: Noe Rivera Consult Reason/Comments: Non-STEMI Do you want consulting provider notified?: Already Contacted 10/24/18 14:35 Consult Physician Routine Consulting Provider: [facility] Consult Reason/Comments: Post Interventional patient Do you want consulting provider notified?: Already Contacted Primary care physician: Good Beard - Discharge Diagnosis(es) (1) Stented coronary artery Current Visit: Yes Status: Acute (2) COPD (chronic obstructive pulmonary disease) Current Visit: Yes Status: Acute (3) Non-STEMI (non-ST elevated myocardial infarction) Current Visit: Yes Status: Acute Hospital Course: DC summary on a 68 year-old male with NSTEMI and stent placement. The patient otherwise has been stable and pain-free. Patient Condition at Discharge: Stable Plan - Discharge Summary Discharge Rx Participant: Yes New Discharge Prescriptions: No Action Niacin 500 mg PO BID Aspirin EC [Ecotrin] 325 mg PO BID Simvastatin 40 mg PO HS Omeprazole [PriLOSEC] 20 mg PO DAILY Lisinopril [Zestril] 20 mg PO DAILY Isosorbide Mononitrate ER [Imdur] 60 mg PO DAILY HYDROcodone/APAP 5-325MG [[place] 5-325] 1 tab PO Q6H PRN PRN Reason: Pain Cyclobenzaprine [Flexeril] 10 mg PO TID metFORMIN HCL [Glucophage] 500 mg PO AC-BID Umeclidinium Brm/Vilanterol Tr [Anoro Ellipta 62.5-25 Mcg INH] 1 puff INHALAT ION RT-DAILY Atenolol [Tenormin] 100 mg PO DAILY Atenolol [Tenormin] 50 mg PO HS Discharge Medication List Aspirin EC [Ecotrin] 325 mg PO BID 10/24/18 [History] Atenolol [Tenormin] 50 mg PO HS 10/24/18 [History] Atenolol [Tenormin] 100 mg PO DAILY 10/24/18 [History] Cyclobenzaprine [Flexeril] 10 mg PO TID 10/24/18 [History] HYDROcodone/APAP 5-325MG [[place] 5-325] 1 tab PO Q6H PRN 10/24/18 [History] Isosorbide Mononitrate ER [Imdur] 60 mg PO DAILY 10/24/18 [History] Lisinopril [Zestril] 20 mg PO DAILY 10/24/18 [History] Niacin 500 mg PO BID 10/24/18 [History] Omeprazole [PriLOSEC] 20 mg PO DAILY 10/24/18 [History] Simvastatin 40 mg PO HS 10/24/18 [History] Umeclidinium Brm/Vilanterol Tr [Anoro Ellipta 62.5-25 Mcg INH] 1 puff INHALATION RT-DAILY 10/24/18 [History] metFORMIN HCL [Glucophage] 500 mg PO AC-BID 10/24/18 [History] Follow up Appointment(s)/Referral(s): Noe Rivera MD [STAFF PHYSICIAN] - 1 Week (Spoke to operator receptionist. Office will call with appointment time.) Good Beard MD [Primary Care Provider] - 10/31/18 1:20 pm (Wednesday) Patient Instructions/Handouts: *[facility] - After Heart Catheterization - Comic Artist Instructions, Left Heart Catheterization (DC)
[2018-10-26] MEDS: LISINOPRIL 20 MG TAB PO SCH (10:30)
[2018-10-26] MEDS: PRASUGREL 10 MG TAB PO SCH (10:30)
[2018-10-26] MEDS: ASPIRIN 81 MG PO SCH (10:30)
[2018-10-26] MEDS: CYCLOBENZAPRINE 10 MG TAB PO SCH (10:30)
[2018-10-26] MEDS: ATENOLOL 50 MG TAB PO SCH (10:30)
[2018-10-26] MEDS: NICOTINE 21MG/24HR PATCH TRANSDERM SCH (10:32)
--- NOTE | 2018-10-26 10:36 | PN ---
PROGRESS NOTE Mr. Lugo is a 68-year-old male who presented with a non ST-segment elevation myocardial infarction underwent stenting of the right coronary artery. He is doing well this morning. His breathing has been stable. He is denying any chest pain. No dizziness. No palpitation. No nausea. No cough. Hemodynamically, he is stable. He has a moderate lesion in the mid LAD after the diagonal branch takeoff. He continued to be on aspirin once a day, atenolol 100 mg daily, Lipitor 80 mg daily, lisinopril 20 mg daily and Effient 10 mg daily. PHYSICAL EXAMINATION: Blood pressure 120/60 with the heart rate in the 70s. LUNGS: Clear. HEART: Regular rate and rhythm. S1, S2. No S3. No rub. ABDOMEN: Soft, obese, nontender. EXTREMITIES: No edema. LAB DATA: Lab data revealed BUN and creatinine 24 and 1.16, potassium 4.6. His echocardiogram revealed an ejection fraction 45% to 50%. with inferior wall hypokinesis and a mean gradient across the aortic valve of 17 mmHg. IMPRESSION: 1. Status post stenting of the right coronary artery in the setting of non-ST- elevation myocardial infarction. 2. Moderate disease in the LAD. 3. Mild to moderate aortic stenosis. 4. Chronic tobacco use. 5. Hypertension. 6. Hyperlipidemia. 7. Diabetes mellitus. RECOMMENDATION: From the cardiac standpoint, he should be able to be discharged home and followed as an outpatient and to undergo a nuclear scan to evaluate the LAD territory and depending on those findings, further recommendation will be made. MMODL / IJN: [id number] /
[2018-10-26 11:01] VITALS: BP 108/58; PULSE 68; TEMP 98.2
[2018-10-26 15:22] LABS: Hemoglobin A1C 7.1 % (4.0-6.0)
== END 2018-10-26 11:18 | disposition home or self-care (01) | DRG 247 ==
LOC: EC 10:18 → 3SCARD 13:08
PROVIDERS: ADMIT Family Medicine; ATTEND Family Medicine
PROC: B2111ZZ Fluoroscopy of Multiple Coronary Arteries using Low Osmolar Contrast (ICD-10-PCS; 2018-10-24)
PROC: 027035Z Dilation of Coronary Artery, One Artery with Two Drug-eluting Intraluminal Devices, Percutaneous Approach (ICD-10-PCS; principal; 2018-10-24 18:40)
PROC: 4A023N7 Measurement of Cardiac Sampling and Pressure, Left Heart, Percutaneous Approach (ICD-10-PCS; 2018-10-24 18:40)
DX: I21.4 Non-ST elevation (NSTEMI) myocardial infarction (principal); E11.9 Type 2 diabetes mellitus without complications; E78.5 Hyperlipidemia, unspecified; F17.210 Nicotine dependence, cigarettes, uncomplicated; I10 Essential (primary) hypertension; I25.10 Atherosclerotic heart disease of native coronary artery without angina pectoris; I35.0 Nonrheumatic aortic (valve) stenosis; J44.9 Chronic obstructive pulmonary disease, unspecified; E66.9 Obesity, unspecified; Z68.33 Body mass index [BMI] 33.0-33.9, adult; Z79.82 Long term (current) use of aspirin; Z79.84 Long term (current) use of oral hypoglycemic drugs; Z79.899 Other long term (current) drug therapy; Z88.5 Allergy status to narcotic agent
CPT/HCPCS: 36415; 71046; 80048; 80053; 80061; 82550; 83036; 83735; 84484; 85025; 85610; 85730; 93005; 93306; 93458; 99291; C1874